=== PATIENT | male | born 1990 | race Caucasian/White ===

== ENCOUNTER 2019-04-09 16:30 | Outpatient (CLI) | payer OTHER ==
--- NOTE | 2019-04-10 03:08 | MRI Report ---
Reason: PAIN IN LT KNEE Procedure Date: 04/09/2019 Accession Number: [id number] / [id number] Procedure: MRI - Knee LT W/O CPT Code: Final Report FULL RESULT: EXAM: LEFT KNEE MRI WITHOUT CONTRAST EXAM DATE: 04/09/2019 05:35 PM. CLINICAL HISTORY: PAIN IN LT KNEE. COMPARISON: None. TECHNIQUE: Multiplanar, multisequence T1-weighted and fluid-sensitive sequences of the knee without contrast. Other: None. FINDINGS: Bones: No fractures or subluxations. Bone marrow edema in the patella associated with the cartilage fissure. No bone lesions. Articular Cartilage: Full-thickness cartilage fissure at the medial aspect of the lateral facet of the patella with subjacent bone marrow edema; image 25 series 401. Medial Meniscus: The medial meniscus is intact. Lateral Meniscus: The lateral meniscus is intact. Cruciate Ligaments: The anterior and posterior cruciate ligaments are intact. Collateral Ligaments: The medial collateral and lateral collateral ligamentous structures are intact. Tendons: The quadriceps, patellar, semimembranosus, and popliteus tendons are unremarkable. Musculature: No edema or fatty atrophy. Other: 2.1 x 2.2 x 1.1 cm multilobulated ganglion the posterior medial aspect of the knee adjacent to the posterior cruciate ligament and posterior horn of the medial meniscus. No effusion. No popliteal cyst. No intra-articular bodies. The medial and lateral retinacula are intact. The subcutaneous tissues and fat pads are unremarkable. IMPRESSION: Full-thickness cartilage fissure at the lateral facet of the patella with associated patella bone marrow edema. 2.2 cm multilobulated ganglion at the posterior medial knee. RADIA
== END 2019-04-09 16:31 | disposition home or self-care (01) ==
LOC: DI 16:30
DX: M23.92 Unspecified internal derangement of left knee (principal); M67.462 Ganglion, left knee

== ENCOUNTER 2019-10-07 06:16 | Day surgery (SDC) | payer OTHER ==
[2019-10-07] MEDS ORDERED: CEFAZOLIN SODIUM IN 0.9 % NACL 2 GM/100 ML BAG IV ONE (06:24)
[2019-10-07] MEDS ORDERED: LACTATED RINGERS 1,000 ML IV ONE ×2 (06:37→09:00)
[2019-10-07] MEDS ORDERED: fentaNYL 100 MCG/2 ML VIAL IVP ONE (07:00)
[2019-10-07] MEDS ORDERED: DEXAMETHASONE 4 MG/ML VIAL IVP ONE (07:00)
[2019-10-07] MEDS ORDERED: PROPOFOL 200 MG/20 ML VIAL IVP ONE (07:00)
[2019-10-07] MEDS ORDERED: ONDANSETRON 4 MG/2 ML VIAL IVP ONE (07:00)
[2019-10-07] MEDS ORDERED: BUPIVACAINE 0.25% PF 30 ML VIAL ONE (07:03)
[2019-10-07] MEDS ORDERED: EPINEPHrine 1 MG/ML AMP ONE (07:03)
--- NOTE | 2019-10-07 07:29 | ANESTHESIA ---
Pre-Anesthesia VS, & Labs - Diagnosis Left kne arthroscopy with ganglion cystectomy - Procedure Left Knee arthroscopy cystectomy Vital Signs: Temp Pulse Resp BP Pulse Ox 36.5 C 80 16 118/54 L 99 10/07/19 06:21 10/07/19 06:21 10/07/19 06:21 10/07/19 06:21 10/07/19 06:21 Height 5 ft 10 in Weight (kg) 80 kg - NPO >8 hours - Lab Results Lab results reviewed: Yes Home Medications and Allergies Home Medications: Ambulatory Orders Ibuprofen [Motrin] 600 mg PO Q6H PRN 09/29/19 Ibuprofen [Motrin] 600 mg PO Q6H PRN 09/29/19 Allergies/Adverse Reactions: Allergies Allergy/AdvReac Type Severity Reaction Status Date / Time No Known Drug Allergies Allergy Verified 09/29/19 10:14 Anes History & Medical History - Anesthetic History Anesthesia Complications: reports: No previous complications Family history of Anesthesia Complications: Denies Family history of Malignant Hyperthermia: Denies - Medical History Cardiovascular: reports: None Pulmonary: reports: Sleep apnea Gastrointestinal: reports: None Urinary: reports: None Musculoskeletal: reports: Other Endocrine/Autoimmune: reports: None Skin: reports: None Exam General: Alert, Oriented x3, Cooperative Dental: WNL Mouth Openin Fingerbreadth Neck Mobility: Normal Mallampati classification: I Thyromental Distance: 4-6 cm Respiratory: Lungs clear Cardiovascular: Regular rate Plan Anesthesia Type: General, Adductor Block Regional Block: Per Surgeon's request for Post Op pain control Consent for Procedure(s) Verified and Reviewed: Yes Code Status: Attempt Resuscitation ASA classification: 1-Healthy patient Is this case an emergency?: No
[2019-10-07] MEDS ORDERED: BUPIVACAINE 0.25% PF 10 ML VIAL SUBQ ONE (07:30)
[2019-10-07] MEDS ORDERED: oxyCODONE 5 MG TABLET PO PRN (09:48)
[2019-10-07] MEDS ORDERED: ONDANSETRON 4 MG/2 ML VIAL IVP PRN (09:48)
[2019-10-07] MEDS ORDERED: KETOROLAC 30 MG/ML VIAL ONE (09:52)
--- NOTE | 2019-10-07 10:02 | OPERATIVE REPORT ---
Operative Report - Other Other Information/Narrative: Date of Procedure: 07 October 2019 Planned Procedure: Left knee arthroscopy, cyst drainage Pre-op diagnosis: Left knee posterior medial ganglion versus popliteal cyst Procedure performed: Left knee diagnostic arthroscopy, medial femoral condyle shaving chondroplasty Post-op diagnosis: Left knee posterior medial cyst, focal medial femoral condyle chondromalacia Primary Surgeon: TRINA TOMAS Secondary Surgeon: Anesthesia: General endotracheal EBL: 5 ml Tourniquet: Approximately 80 minutes, left thigh at 250mmHg. Arthroscopic findings left knee: 1. Patella: Small central focal area of chondral fissuring 2. Trochlea: Mild grooving 3. Medial Compartment: Small 5 x 5 mm area of frayed and loose cartilage along the medial edge of the trochlea, small anteromedial area of focal chondromalacia outside the weightbearing dome. Medial meniscal root intact, medial meniscus intact without tears. A modified Gillquist maneuver was used to examine the postero-medial compartment, and a posterior medial arthroscopic portal was placed in an attempt to localize and drain the ganglion cyst. No definitive cyst visualized and needle trephination of the capsule in the expected area of the cyst did not result in any return of cystic-appearing fluid. Vigorous p alpation of the back of the knee did not result in return of fluid. Based on the expected proximity of the cyst to the neurovascular structures, trephination attempts were directed medially and anteriorly depending on the portal used. Based on the lack of observed cystic fluid return, further blind trephination was not attempted. 4. Lateral Compartment: Some cracking and degeneration of the lateral tibial plateau, femoral cartilage intact. Lateral meniscus root intact lateral meniscus intact without tear. 5. ACL and PCL: Intact and normal COMPLICATIONS: none IMPLANTS: None Indications for surgery: 29-year-old male with a longstanding history of posterior medial knee pain, MRI and exam were consistent with a symptomatic cyst along the joint line in the back of the knee just posterior to the PCL and medial meniscal root. Nonoperative treatment had failed to relieve his symptoms. The risks, benefits, and alternatives were discussed. Risks include pain, bleeding, infection, damag e to nearby structures and cartilage, lack of symptom relief, need for further surgery, DVT, PE, stroke, and . Written consent was obtained. Procedure Details: The patient was met in the pre-operative hold area. Persistence of symptoms and consent was verified. The patient verified the surgical site as the left knee. The operative knee was initialed per our standard protocol using surgical marker. The patient then met with anesthesia and was brought back to the operating room. The patient was placed supine on the operating table. A general anesthetic was administered and LMA was placed. A well-padded tourniquet was placed on the left thigh. Following tourniquet placement, the left lower extremity was then prepped and draped in the usual sterile fashion. A surgical timeout was performed, verifying the correct patient, the correct procedure and surgical site. We confirmed that perioperative antibiotics had been administered. Everyone agreed to proceed. The Escmarch was used to exsanguinate the left lower extremity and the tourniquet was raised. An 11 blade scalpel was used to make an anterolateral arthroscopic portal, the anteromedial was created using needle localization and direct visualization. The arthroscope was introduced into the knee and a diagnostic arthroscopy was performed with the above-stated findings. A limited debridement of the anterior fat pad was performed to improve visualization. A limited shaving chondroplasty of the medial medial femoral condyle notch lesion was performed. The posterior medial compartment of the knee was entered using a modified Gillquist maneuver, a switching stick was passed followed by a second scope cannula under direct visualization, once this had been passed it was in the posterior medial compartment, the camera was removed from the anteromedial portal the cannula was held in place, the switching stick was removed and the 70 degree arthroscope was placed into the posterior medial compartment. Inspection of the posterior medial compartment did not reveal any definitive cystic structure visible in the expected location. A posterior medial portal was created using needle localization through the soft spot under direct visualization and a 5.5 mm lipped cannula was placed following a small skin incision and blunt dissection with a hemostat down to the level of the capsule. Instrumentation through the posterior medial portal and palpation and trephination of the posterior capsular tissues just posterior to the posterior horn of the medial meniscus and medial meniscal root did not result in return of any cystic fluid nor any identification of a clear cystic structure. The posterior medial cannula was then removed, we switched back to the 30 degree arthroscope and placed the camera in the anteromedial portal. Valgus stress was applied to the knee and the area of the expected cyst was approached using a spinal needle and from anterolateral to posterior medial skiving under the meniscus into the capsule, approximately 3 trephination's were performed in this fashion, without return of any cystic appearing fluid. A spinal needle was then again used through the modified Gillquist interval into the posterior capsular tissue just superior to the root and start of the posterior horn of the medial meniscus a probe was used in the capsular rent to palpate for any cystic structures again none was appreciated. Based on negative return of cystic fluid from the expected locations, no further attempts were made to trephinate or identify the cyst as I felt the risks outweighed the benefit. The arthroscopic fluid was drained from the knee. The arthroscopic instruments were then removed from the knee. The portals were closed with 3-0 Monocryl. 30 mL 0.25% Marcaine plain was injected into the periarticular soft tissues. The incisions were dressed with Xeroform gauze, 4x4 gauze, an ABD a web roll and a compressive Roel wrap from the ankle to the mid thigh. The tourniquet was lowered. The surgical drapes were removed. The patient was awoken from anesthesia, transferred to the hospital bed, and taken to the PACU for recovery in good condition. Postoperative plan: 1. Discharge home from the same day surgery facility once the patient has met discharge criteria. 2. Advance weightbearing as tolerated, range of motion as tolerated, and wean from crutches as tolerated as gait normalizes. 3. Return to clinic in 5-7 days for wound check. Will start formal PT at that time. 4. Allow advancement of activities as tolerated with full clearance for all activities anticipated in 6-8 weeks postoperatively.
[2019-10-07 10:26] VITALS: BP 122/80
== END 2019-10-07 06:17 | disposition home or self-care (01) ==
LOC: SDS 06:16
PROVIDERS: ATTEND Orthopaedic Surgery
DX: M71.22 Synovial cyst of popliteal space [Baker], left knee (principal); M94.262 Chondromalacia, left knee; G47.30 Sleep apnea, unspecified